=== PATIENT | female | born 1955 | race Caucasian/White ===

== ENCOUNTER 2017-04-15 18:30 | Emergency (ER) | payer MEDICAID, OTHER ==
[2017-04-15 18:38] VITALS: BP 131/65; BMI 31.8
[2017-04-15] MEDS ORDERED: ZOFRAN INJ 4 MG VIAL IM ONE (19:51)
[2017-04-15] MEDS ORDERED: TORADOL 60 MG VIAL IM ONE (19:51)
--- NOTE | 2017-04-15 19:53 | DR.GENAD ---
HPI - PCP Primary Care PhysicianCaitlin HERNANDEZ - Complaint/Symptoms Chief Complaint:: PT STATES" I BEEN HURTING IN MY UPPER MID STOMACH FOR 3 WEEKS AND I HURT MY LEFT ANKLE WHEN I WAS WALKING. I FEEL NAUSEAED BUT I DON'T HAVE ANYTHING IN ME TOO PUKE" - Source History Provided: Patient - Mode of Arrival Mode of Arrival: Wheelchair - Timing Onset of Chief Complaint: 04/01/17 PMH - PMH Past Medical History: Yes Past Medical History: Dyslipidemia Past Surgical History: Yes Surgical History: DOCK OPERATOR Surgery Past Surgical History Comment: BACK SURGERY IN AUG 2016 - Family History History of Family Medical Conditions: Yes Family Medical History: Diabetes Mellitus, Hypertension - Social History Does any household member use tobacco: Yes Alcohol Use: None Do you use any recreational Drugs:: No Lives With: Family Lives Where: Home - infectious screening In the last 2 months have you had wt loss of >10#?: NO Have you had fever, night sweats or hemotysis?: No Have you traveled outside the country in the last 6 months?: No Isolation: Standard ROS - Review of Systems Constitutional: No Symptoms Reported Eyes: No Symptoms Reported ENTM: No Symptoms Reported Respiratoy: No Symptoms Reported Cardiovascular: No Symptoms Reported Gastrointestinal/Abdominal: Other (epigastric pain) Genitourinary: No Symptoms Reported Neurological: No Symptoms Reported Musculoskeletal: No Symptoms Reported Integumentary: No Symptoms Reported Hematologic/Lymphatic: No Symptoms Reported Endocrine: No Symptoms Reported Psychiatric: No Symptoms Reported All Other Systems: Reviewed and Negative PE - Vital Signs Vitals: Temperature 98.1 F Pulse Rate 90 Respiratory Rate 18 Blood Pressure 131/65 O2 Sat by Pulse Oximetry 99 - General Limitations: No Limitations General Appearance: Alert, In No Apparent Distress - Head Head Exam: Normal Inspection, Atraumatic - Eyes Eye exam: Normal Appearance, PERRL, EOMI - ENT ENT Exam: Normal Exam External Ear Exam: Normal External Inspection TM/Canal Exam: Bilateral Normal Nose Exam: Normal Nose Exam Mouth Exam: Normal Inspection Throat Exam: Normal Inspection - Neck Neck Exam: Normal Inspection - Chest Chest Inspection: Normal Inspection, Symmetric Chest Wall Rise - Respiratory Respiratory Exam: Normal Lung Sounds Bilat Respiratory Exam: Bilateral Clear to Auscultation - Cardiovascular Cardiovascular Exam: Regular Rate - Abdominal Exam Abdominal Exam: Normal Inspection Abdominal Tenderness: Epigastrium - Extremities Extremities Exam: Normal Inspection, Full ROM - Back Back Exam: Normal Inspection, Full ROM - Neurologic Neurological Exam: Alert, Oriented X3, CN II-XII Intact - Psychiatric Psychiatric Exam: Normal Affect, Normal Mood - Skin Skin Exam: Warm, Dry, Intact Course - Reevaluation 1st: Unchanged ROR - Labs Reviewed Laboratory Results Reviewed?: Yes (H pylori positive) Result Diagrams: 04/15/17 20:05 04/15/17 20:05 Laboratory: WBC 18.0 X10^3/uL (3.6-10.0) H 04/15/17 20:05 RBC 4.34 X10^6/uL (3.5-5.4) 04/15/17 20:05 Hgb 13.6 g/dL (12.0-16.0) 04/15/17 20:05 Hct 39.5 % (36.0-47.0) 04/15/17 20:05 MCV 91.0 fL (80.0-100.0) 04/15/17 20:05 MCH 31.3 pg (27.0-34.0) 04/15/17 20:05 MCHC 34.3 g/dL (33.0-35.0) 04/15/17 20:05 RDW 13.8 % (11.6-16.5) 04/15/17 20:05 Plt Count 326 X10^3/uL (150.0-450.0) 04/15/17 20:05 Plt Count Comment Adequate (ADEQUATE) 04/15/17 20:05 MPV 7.4 fL (7.4-11.0) 04/15/17 20:05 Neut % 71.8 % (42.0-75.0) 04/15/17 20:05 Lymph % 20.3 % (21.0-51.0) L 04/15/17 20:05 [place] % 7.3 % (0.0-13.0) 04/15/17 20:05 Eos % 0.4 % (0.9-2.9) L 04/15/17 20:05 Baso % 0.2 % (0.2-1.0) 04/15/17 20:05 Neut # 12.9 x10^3/uL (2.2-4.8) H 04/15/17 20:05 Lymph # 3.6 X10^3/uL (1.3-2.9) H 04/15/17 20:05 [place] # 1.3 x10^3/uL (0.3-0.8) H 04/15/17 20:05 Eos # 0.1 x10^3/uL (0.0-0.2) 04/15/17 20:05 Baso # 0.0 X10^3/uL (0.0-0.1) 04/15/17 20:05 Absolute Nucleated RBC 0.0 /100WBC 04/15/17 20:05 Plt Morphology Comment Normal (NORMAL) 04/15/17 20:05 RBC Morphology Normal (NORMAL) 04/15/17 20:05 Sodium 139 mmol/L (136-145) 04/15/17 20:05 Corrected Sodium TNP 04/15/17 20:05 Potassium 4.0 mmol/L (3.5-5.1) 04/15/17 20:05 Chloride 102 mmol/L (98-107) 04/15/17 20:05 Carbon Dioxide 25.5 mmol/L (21-32) 04/15/17 20:05 BUN 17 mg/dL (7-18) 04/15/17 20:05 Creatinine 0.86 mg/dL (0.55-1.02) 04/15/17 20:05 Est GFR (MDRD) Af Amer > 60 (>60) 04/15/17 20:05 Est GFR (MDRD) Non-Af > 60 (>60) 04/15/17 20:05 Glucose 95 mg/dL (65-99) 04/15/17 20:05 Calcium 9.0 mg/dL (8.5-10.1) 04/15/17 20:05 Corrected Calcium TNP 04/15/17 20:05 Total Bilirubin 0.40 mg/dL (0.2-1.0) 04/15/17 20:05 AST 32 Units/L (15-37) 04/15/17 20:05 ALT 47 Units/L (12-78) 04/15/17 20:05 Alkaline Phosphatase 97 Units/L (46-116) 04/15/17 20:05 C-Reactive Protein 2.40 mg/L (0-3.0) 04/15/17 20:05 Total Protein 7.5 g/dL (6.4-8.2) 04/15/17 20:05 Albumin 3.7 g/dL (3.4-5.0) 04/15/17 20:05 Globulin 3.8 g/dL (2.5-4.5) 04/15/17 20:05 Albumin/Globulin Ratio 1.0 Ratio (1.1-2.1) L 04/15/17 20:05 H. pylori IgG Antibody Positive (NEGATIVE) A 04/15/17 20:05 - Diagnosis Discharge Problem: Helicobacter pylori gastritis - Discharge Plan Condition: Stable - Follow ups/Referrals Follow ups/Referrals: Yusuf Hernandez [Primary Care Provider] - 3 days - Instructions
[2017-04-15] MEDS ORDERED: TORADOL 60 MG VIAL ONE (19:56)
[2017-04-15] MEDS ORDERED: ZOFRAN INJ 4 MG VIAL ONE (19:56)
[2017-04-15 20:26] LABS: ALANINE AMINOTRANSFERASE 47 Units/L (12-78); ALBUMIN 3.7 g/dL (3.4-5.0); ALKALINE PHOSPHATASE 97 Units/L (46-116); ASPARTATE AMINO TRANSFERASE 32 Units/L (15-37); BLOOD UREA NITROGEN 17 mg/dL (7-18); CARBON DIOXIDE 25.5 mmol/L (21-32); CHLORIDE 102 mmol/L (98-107); CREATININE 0.86 mg/dL (0.55-1.02); GLUCOSE 95 mg/dL (65-99); SODIUM 139 mmol/L (136-145); TOTAL PROTEIN 7.5 g/dL (6.4-8.2); eGFR BLACK RACES > 60 (>60); eGFR NON BLACK RACES > 60 (>60)
[2017-04-15 20:29] LABS: BASOPHILS % (AUTO) 0.2 % (0.2-1.0); EOSINOPHILS # (AUTO) 0.1 x10^3/uL (0.0-0.2); EOSINOPHILS % (AUTO) 0.4 % (0.9-2.9); HEMATOCRIT 39.5 % (36.0-47.0); HEMOGLOBIN 13.6 g/dL (12.0-16.0); LYMPHOCYTES # (AUTO) 3.6 X10^3/uL (1.3-2.9); LYMPHOCYTES % (AUTO) 20.3 % (21.0-51.0); MEAN CORPUSCULAR HEMOGLOBIN 31.3 pg (27.0-34.0); MEAN CORPUSCULAR HGB CONC 34.3 g/dL (33.0-35.0); MEAN PLATELET VOLUME 7.4 fL (7.4-11.0); MONOCYTES # (AUTO) 1.3 x10^3/uL (0.3-0.8); MONOCYTES % (AUTO) 7.3 % (0.0-13.0); NEUTROPHILS # (AUTO) 12.9 x10^3/uL (2.2-4.8); NEUTROPHILS % (AUTO) 71.8 % (42.0-75.0); PLATELET COUNT 326 X10^3/uL (150.0-450.0); RED BLOOD COUNT 4.34 X10^6/uL (3.5-5.4); RED CELL DISTRIBUTION WIDTH 13.8 % (11.6-16.5)
[2017-04-15 20:45] LABS: PLATELET MORPHOLOGY COMMENT NORMAL (NORMAL)
--- NOTE | 2017-04-15 21:18 | RAD ---
Three views of the left foot Indication: Left foot pain after twisting injury the Findings: No acute fracture dislocation within the left hip. No localizing soft tissue swelling. Lis franc joint alignment is maintained. Mild enthesopathic change of the distal Achilles tendon. Impression: No acute radiographic abnormality within the left foot. Reported By:
== END 2017-04-15 21:45 | disposition home or self-care (01) ==
LOC: ER 18:45
DX: R10.13 Epigastric pain (principal); B96.81 Helicobacter pylori [H. pylori] as the cause of diseases classified elsewhere
CPT/HCPCS: 36415; 73630; 80053; 85025; 86140; 86677; 96372; 99283; J1885; J2405